=== PATIENT | female | born 1980 | race Caucasian/White ===

== ENCOUNTER 2016-09-20 15:09 | Emergency (ER) | payer MEDICAID ==
[~2016-09-20] VITALS: Ht 154.9 cm; Wt 80.4 kg
[~2016-09-20 15:09] MED LIST: ALBUTEROL
[2016-09-20 22:55] LABS: CLARITY URINE CLEAR (CLEAR); COLOR URINE YELLOW (YELLOW); GLUCOSE URINE NEGATIVE (NEGATIVE); KETONES URINE NEGATIVE (NEGATIVE); LEUKOCYTE ESTERASE URINE NEGATIVE (NEGATIVE); NITRITE URINE NEGATIVE (NEGATIVE); OCCULT BLOOD URINE NEGATIVE (NEGATIVE); PH URINE 6.5 (4.5-8.0); PROTEIN URINE NEGATIVE (NEGATIVE); SPECIFIC GRAVITY URINE 1.024 (1.005-1.030); UROBILINOGEN URINE 0.2 E.U./dL (0.2-1.0)
[2016-09-20 23:08] LABS: *AMPHETAMINES SCREEN URINE NEGATIVE (NEGATIVE); *BARBITURATES SCREEN URINE NEGATIVE (NEGATIVE); *BENZODIAZEPINES SCREEN URINE NEGATIVE (NEGATIVE); *COCAINE SCREEN URINE NEGATIVE (NEGATIVE); CANNABINOID URINE SCREEN NEGATIVE (NEGATIVE); ECSTASY MDMA SCREEN URINE NEGATIVE (NEGATIVE); METHADONE URINE SCREEN NEGATIVE (NEGATIVE); OPIATES URINE SCREEN NEGATIVE (NEGATIVE); PHENCYCLIDINE URINE SCREEN NEGATIVE (NEGATIVE)
[2016-09-21 00:45] VITALS: BP 122/82
== END 2016-09-21 01:15 | disposition home or self-care (01) ==
LOC: ER 21:53
DX: R51 Headache (principal); R42 Dizziness and giddiness; H53.8 Other visual disturbances; M19.90 Unspecified osteoarthritis, unspecified site; F17.210 Nicotine dependence, cigarettes, uncomplicated
CPT/HCPCS: 70450; 80305; 81003; 81025; 99285

== ENCOUNTER 2017-05-01 00:59 | Emergency (ER) | payer MEDICAID ==
[~2017-05-01] VITALS: Ht 154.9 cm; Wt 75.0 kg
[2017-05-01] MEDS ORDERED: SODIUM CHLORIDE 0.9% 1,000 ML IV ONE (03:16)
[2017-05-01] MEDS ORDERED: ACETAMINOPHEN 650MG/20.3ML UDC PO ONE (03:30)
[2017-05-01 03:44] VITALS: BP 103/54
[2017-05-01 03:46] LABS: BASOPHILS % 0.6 % (0.0-2.0); EOSINOPHILS % 0.9 % (0.0-5.0); HEMATOCRIT. 34.1 % (36.0-48.0); HEMOGLOBIN. 11.1 g/dL (12.0-16.0); LYMPHOCYTES % 23.6 % (20.0-50.0); MEAN CORPUSCULAR HEMOGLOBIN 21.2 pg (28.0-32.0); MEAN CORPUSCULAR VOLUME 65.2 fL (81.0-99.0); MEAN PLATELET VOLUME 9.1 fl (7.4-10.4); NEUTROPHILS % 70.9 % (40.0-76.0); PLATELET 273 x1000/uL (130-400); RED BLOOD CELL COUNT 5.22 mill/uL (4.2-5.4); RED CELL DISTRIBUTION WIDTH 14.6 % (11.6-14.6)
[2017-05-01 04:05] LABS: CARBON DIOXIDE 25 mEq/L (21-32); CHLORIDE 106 mEq/L (98-107)
[2017-05-01 04:13] LABS: B-HCG QUANTITATIVE 80712 mIU/mL (<3)
[2017-05-01] MEDS ORDERED: ACETAMINOPHEN 325MG TABLET PO NR (04:15)
[2017-05-01 06:39] LABS: CLARITY URINE CLEAR (CLEAR); COLOR URINE YELLOW (YELLOW); KETONES URINE NEGATIVE (NEGATIVE); LEUKOCYTE ESTERASE URINE NEGATIVE (NEGATIVE); NITRITE URINE NEGATIVE (NEGATIVE); OCCULT BLOOD URINE 1+ (NEGATIVE); PH URINE 6.5 (4.5-8.0); PROTEIN URINE NEGATIVE (NEGATIVE); SPECIFIC GRAVITY URINE 1.009 (1.005-1.030); UROBILINOGEN URINE 0.2 E.U./dL (0.2-1.0)
== END 2017-05-01 08:00 | disposition home or self-care (01) ==
LOC: ER 00:59
DX: O20.0 Threatened abortion (principal); O26.891 Other specified pregnancy related conditions, first trimester; R03.0 Elevated blood-pressure reading, without diagnosis of hypertension; O99.331 Smoking (tobacco) complicating pregnancy, first trimester; F17.210 Nicotine dependence, cigarettes, uncomplicated; Z3A.08 8 weeks gestation of pregnancy
CPT/HCPCS: 36415; 76801; 76817; 80053; 81001; 81025; 84702; 85025; 86850; 86900; 86901; 87210; 87491; 87591; 96360; 96361; 99285; J7030; Z7610

== ENCOUNTER 2017-07-26 14:44 | Observation (INO) | payer MEDICAID ==
[~2017-07-26] VITALS: Ht 154.9 cm; Wt 75.7 kg
[2017-07-26] MEDS ORDERED: PNV1TABL76 PO (15:35)
[2017-07-26] MEDS ORDERED: SODIUM CHLORIDE 0.9% 1,000 ML IV ONE (15:45)
[2017-07-26 16:27] LABS: CLARITY URINE CLEAR (CLEAR); COLOR URINE YELLOW (YELLOW); KETONES URINE NEGATIVE (NEGATIVE); LEUKOCYTE ESTERASE URINE NEGATIVE (NEGATIVE); NITRITE URINE NEGATIVE (NEGATIVE); OCCULT BLOOD URINE NEGATIVE (NEGATIVE); PROTEIN URINE NEGATIVE (NEGATIVE); SPECIFIC GRAVITY URINE 1.004 (1.005-1.030); UROBILINOGEN URINE 0.2 E.U./dL (0.2-1.0)
== END 2017-07-26 17:30 | disposition home or self-care (01) ==
LOC: L&D 14:44
PROVIDERS: ADMIT Specialist; ATTEND Specialist
DX: O46.92 Antepartum hemorrhage, unspecified, second trimester (principal); O26.892 Other specified pregnancy related conditions, second trimester; R10.30 Lower abdominal pain, unspecified; Z3A.21 21 weeks gestation of pregnancy
CPT/HCPCS: 76815; 81003; 96360; 96361; 99281; G0378

== ENCOUNTER 2021-10-23 15:16 | Observation (INO) | payer MEDICAID ==
[~2021-10-23] VITALS: Ht 162.6 cm; Wt 81.6 kg
[~2021-10-23 15:16] MED LIST changes: +PNV1TABL76 PO
== END 2021-10-23 17:20 | disposition home or self-care (01) ==
LOC: 8 EST LDRP 15:16
PROVIDERS: ADMIT Specialist; ATTEND Specialist
DX: O99.891 Other specified diseases and conditions complicating pregnancy (principal); M54.9 Dorsalgia, unspecified; O09.523 Supervision of elderly multigravida, third trimester; Z3A.31 31 weeks gestation of pregnancy
CPT/HCPCS: 59025; G0378; 99281

== ENCOUNTER 2021-11-19 22:00 | Observation (INO) | payer MEDICAID ==
[~2021-11-19] VITALS: Ht 121.9 cm; Wt 78.9 kg
[2021-11-19] MEDS ORDERED: ONDANSETRON HCL 4MG/2ML INJ IV PRN (22:45)
[2021-11-19] MEDS ORDERED: ACETAMINOPHEN 500MG TABLET PO PRN (22:45)
[2021-11-19] MEDS: LACTATED RINGERS 1,000 ML IV SCH (23:10)
[2021-11-19] MEDS ORDERED: CEFAZOLIN 1000MG PREMIX 50 ML IV SCH (23:30)
[2021-11-20 00:44] LABS: CLARITY URINE CLOUDY (CLEAR); COLOR URINE YELLOW (YELLOW); KETONES URINE NEGATIVE (NEGATIVE); LEUKOCYTE ESTERASE URINE 2+ (NEGATIVE); NITRITE URINE NEGATIVE (NEGATIVE); OCCULT BLOOD URINE NEGATIVE (NEGATIVE); PH URINE 6.5 (4.5-8.0); PROTEIN URINE NEGATIVE (NEGATIVE)
[2021-11-20] MEDS ORDERED: PNV1CAPS42 PO (02:32)
[2021-11-20] MEDS ORDERED: LEVO75TA PO (02:32)
[2021-11-20] MEDS ORDERED: METF-416 PO (02:32)
[2021-11-20] MEDS: LACTATED RINGERS 1,000 ML IV SCH (03:25)
[2021-11-27] MEDS ORDERED: IBUP-2028 PO (13:30)
== END 2021-11-20 03:55 | disposition home or self-care (01) ==
LOC: 8 EST LDRP 22:00
PROVIDERS: ADMIT Obstetrics & Gynecology; ATTEND Obstetrics & Gynecology
DX: O99.891 Other specified diseases and conditions complicating pregnancy (principal); M54.50 Low back pain, unspecified; O62.9 Abnormality of forces of labor, unspecified; O26.893 Other specified pregnancy related conditions, third trimester; R10.9 Unspecified abdominal pain; O24.415 Gestational diabetes mellitus in pregnancy, controlled by oral hypoglycemic drugs; Z79.84 Long term (current) use of oral hypoglycemic drugs; Z3A.35 35 weeks gestation of pregnancy; Z79.899 Other long term (current) drug therapy
CPT/HCPCS: 59025; 76805; 76818; 81003; 82731; 96361; 96365; 96366; G0378; J0690; 96360; 99281

== ENCOUNTER 2023-03-11 03:38 | Emergency (ER) | payer MEDICAID ==
[~2023-03-11] VITALS: Ht 154.9 cm; Wt 80.5 kg
[~2023-03-11 03:38] MED LIST changes: -ALBUTEROL; +IBUP-2028 PO; +LEVO75TA PO; +METF-416 PO; +PNV1CAPS42 PO; -PNV1TABL76 PO
[2023-03-11 03:49] VITALS: BP 138/84; PULSE 95; RESP 18; TEMP 98.4; O2SAT 98
[2023-03-11 04:06] LABS: BASOPHILS % 0.9 % (0.0-2.0); EOSINOPHILS % 0.7 % (0.0-5.0); HEMATOCRIT. 32.6 % (36.0-48.0); HEMOGLOBIN. 10.2 g/dL (12.0-16.0); LYMPHOCYTES % 27.3 % (20.0-50.0); MEAN CORPUSCULAR HEMOGLOBIN 18.8 pg (28.0-32.0); MEAN CORPUSCULAR HGB CONC 31.2 g/dL (31.0-37.0); MEAN CORPUSCULAR VOLUME 60.2 fL (81.0-99.0); MONOCYTES % 5.6 % (2.0-8.0); NEUTROPHILS % 65.5 % (40.0-76.0); PLATELET 304 x1000/uL (130-400); RED BLOOD CELL COUNT 5.42 mill/uL (4.2-5.4); RED CELL DISTRIBUTION WIDTH 18.3 % (11.6-14.6); WHITE BLOOD COUNT 11.2 x1000/uL (4.5-11.0)
[2023-03-11 04:17] LABS: CHLORIDE 111 mEq/L (98-107); INDEX HEMOLYSI 1 (1-3); INDEX ICTERIC 1 (1-4); INDEX LIPEMIC 1 (1-3); POTASSIUM 3.8 mEq/L (3.5-5.1); SODIUM 140 mEq/L (136-145)
[2023-03-11 04:19] LABS: INR 1.1; PROTHROMBIN TIME 11.6 sec (9.6-11.0)
[2023-03-11 04:26] LABS: ALANINE AMINOTRANSFERASE 141 IU/L (13-61); ALBUMIN 3.9 g/dL (3.4-5.0); ASPARTATE AMINOTRANSFERASE 96 IU/L (15-37); BILIRUBIN TOTAL 0.2 mg/dL (0.1-1.0); CALCIUM 8.6 mg/dL (8.5-10.1); CARBON DIOXIDE 23 mEq/L (21-32); CREATININE 0.7 mg/dL (0.6-1.3); GLUCOSE 208 mg/dL (70-105); PROTEIN TOTAL 8.8 g/dL (6.0-8.3); TROPONIN I HIGH SENSITIVITY 4 ng/L (<54); UREA NITROGEN BLOOD 9 mg/dL (7-21)
[2023-03-11 04:27] LABS: DIFFERENTIAL COMMENT 1
[2023-03-11 04:28] LABS: ADD RBC MORPHOLOGY YES
[2023-03-11 04:35] LABS: HCG SCREEN NEGATIVE
[2023-03-11 06:24] LABS: PLATELET ESTIMATE NORMAL
[2023-03-11 06:25] LABS: HYPOCHROMASIA 2+; MICROCYTOSIS 2+
== END 2023-03-11 07:25 | disposition left against medical advice (07) ==
LOC: ER 03:38
DX: R07.89 Other chest pain (principal); Z53.21 Procedure and treatment not carried out due to patient leaving prior to being seen by health care provider
CPT/HCPCS: 36415; 71045; 80053; 84484; 84703; 85025; 93005; 99281

== ENCOUNTER 2023-06-01 04:08 | Emergency (ER) | payer MEDICAID ==
[~2023-06-01] VITALS: Ht 162.6 cm; Wt 91.0 kg
[2023-06-01 04:18] VITALS: BP 189/102; PULSE 113; RESP 18; TEMP 95.9; O2SAT 100
== END 2023-06-01 05:40 | disposition left against medical advice (07) ==
LOC: ER 04:08
DX: R10.9 Unspecified abdominal pain (principal); E11.9 Type 2 diabetes mellitus without complications; J45.909 Unspecified asthma, uncomplicated; Z53.21 Procedure and treatment not carried out due to patient leaving prior to being seen by health care provider
CPT/HCPCS: 99283